=== PATIENT | female | born 1995 | race Caucasian/White ===

== ENCOUNTER 2023-01-04 08:00 | Outpatient (CLI) | payer OTHER ==
[2023-01-04 21:01] LABS: BACTERIAL VAGINOSIS DNA POSITIVE (NEGATIVE); CANDIDA GLABRATA DNA NEGATIVE (NEGATIVE); CANDIDA GROUP DNA POSITIVE (NEGATIVE); CANDIDA KRUSEI DNA NEGATIVE (NEGATIVE); TRICHOMONAS VAGINALIS DNA NEGATIVE (NEGATIVE)
== END 2023-01-04 23:59 | disposition home or self-care (01) ==
LOC: LAB.WC 08:00
PROVIDERS: ATTEND Nurse Practitioner
DX: N89.8 Other specified noninflammatory disorders of vagina (principal)
CPT/HCPCS: 81514

== ENCOUNTER 2023-02-08 07:13 | Outpatient (CLI) | payer OTHER ==
--- NOTE | 2023-02-08 16:01 | Ultrasound Report ---
PROCEDURE: Pelvic w/Transvaginal INDICATIONS: ABN MENSTRUAL BLEED TECHNIQUE: Real-time scanning was performed of the pelvic organs, with image documentation. Additional endovagi nal scanning was necessary due to incomplete visualization of the adnexal and endometrial structures by transabdominal scanning. COMPARISON: None. FINDINGS: Uterus: Uterus is anteverted and normal in size at 8.1 x 3.3 x 5.2 cm. The myometrium is heterogene ous. The endometrium measures 8 mm in combined thickness. There is a 1.2 x 1.3 x 1.2 cm submucosal fibroid in the right anterior wall. There is trace fluid in the endocervical canal. Ovaries: The right ovary measures 2.8 x 2.7 x 1.8 cm, with a calculated ovarian volume of 7.2 cc. T he left ovary measures 3.4 x 3.2 x 3.0 cm, with a calculated ovarian volume of 16.6 cc. The ovaries have a normal sonographic appearance. There is a dominant follicle in the left ovary measuring 2.2 x 1.6 x 2.6 cm. More than 12 follicles can be seen in each ovary. No adnexal masses are seen. No cyst ic lesions measuring greater than 3 cm. Other: No pathologic free abdominal or pelvic fluid. IMPRESSION: 1. A small submucosal fibroid in the right anterior uterine wall. 2. Greater than 12 ovarian follicles. Recommend clinical correlation for the possibility of polycysti c ovaries. Reviewed by: Valencia Cadena MD on 02/08/2023 3:59 PM PST Approved by: Valencia Cadena MD on 02/08/2023 3:59 PM PST Station ID: [id number]
== END 2023-02-08 07:14 | disposition home or self-care (01) ==
LOC: DI 07:13
PROVIDERS: ATTEND Nurse Practitioner
DX: N93.9 Abnormal uterine and vaginal bleeding, unspecified (principal); D25.0 Submucous leiomyoma of uterus

== ENCOUNTER 2023-02-26 07:23 | Outpatient (CLI) | payer OTHER ==
[2023-02-26 08:15] LABS: THYROID STIMULATING HORMONE 2.13 uIU/mL (0.34-5.60)
[2023-02-26 11:58] LABS: ESTIMATED AVERAGE GLUCOSE 97 mg/dL (70-100)
[2023-02-27 07:09] LABS: ESTRADIOL 28.5 pg/mL (.); PROGESTERONE 0.4 ng/mL (.)
[2023-02-27 17:08] LABS: FREE TESTOSTERONE(DIRECT) 3.7 pg/mL (0.0-4.2); SEX HORM BINDING GLOB SERUM 53.9 nmol/L (24.6-122.0)
== END 2023-02-26 07:24 | disposition home or self-care (01) ==
LOC: LAB 07:23
PROVIDERS: ATTEND Nurse Practitioner
DX: N93.9 Abnormal uterine and vaginal bleeding, unspecified (principal)
CPT/HCPCS: 36415; 82397; 82627; 82670; 83001; 83002; 83036; 83498; 84144; 84146; 84270; 84402; 84403; 84443